=== PATIENT | female | born 1960 | race Caucasian/White ===

== ENCOUNTER → 2016-12-06 | Outpatient (CLI) | payer OTHER ==
--- NOTE | 2016-12-09 09:03 | MM ---
Reason for exam: screening (asymptomatic). Last mammogram was performed 2 years and 2 months ago. History: Patient is postmenopausal. Benign cyst aspiration of the right breast. Physical Findings: A clinical breast exam by your physician is recommended on an annual basis and results should be correlated with mammographic findings. MG 3D Screening Mammo W/Cad Bilateral CC and MLO view(s) were taken. Prior study comparison: September 30, 2014, bilateral MG screening mammo w CAD. September 01, 2009, bilateral screening mammogram free. There are scattered fibroglandular densities. There is no discrete abnormality. No significant changes when compared with prior studies. ASSESSMENT: Negative, BI-RAD 1 RECOMMENDATION: Routine screening mammogram of both breasts in 1 year.
== END | disposition home or self-care (01) ==
LOC: RADMAMWWP 09:51
PROVIDERS: ATTEND Family Medicine
DX: Z12.31 Encounter for screening mammogram for malignant neoplasm of breast (principal)
CPT/HCPCS: 77052; 77063; G0202

== ENCOUNTER 2018-12-24 23:14 | Emergency (ER) | payer OTHER, BC ==
[2018-12-24 23:29] VITALS: TEMP 98.2
[2018-12-24] MEDS ORDERED: DIPH,PERTUS(ACELL)TETVAC-LF 0.5 ML VIAL IM ONE (23:52)
--- NOTE | 2018-12-25 | ED ---
General Adult HPI - General Chief complaint: Fall Stated complaint: Fall, [facility] Time Seen by Provider: 12/24/18 23:47 Source: patient, RN notes reviewed Mode of arrival: ambulatory Limitations: no limitations - History of Present Illness Initial comments: Patient is a pleasant 58-year-old female presenting to the emergency department following a fall. Patient was at work when she slipped on ice outside of her car. Patient struck her left knee. Patient also did strike the left side of her face. Patient did not hit any other part of her head. Patient did not lose consciousness. No visual change. No confusion. No weakness. Patient is ambulatory. No neck or back pain. No chest pain or dyspnea. No abdominal pain. Unclear last tetanus immunization. - Related Data Home Medications Medication Instructions Recorded Confirmed No Known Home Medications 12/24/18 12/24/18 Allergies Allergy/AdvReac Type Severity Reaction Status Date / Time amoxicillin AdvReac Diarrhea Verified 12/24/18 23:30 sulfamethoxazole AdvReac Diarrhea Verified 12/24/18 23:30 [From Bactrim] trimethoprim [From Bactrim] AdvReac Diarrhea Verified 12/24/18 23:30 Review of Systems ROS Statement: Those systems with pertinent positive or pertinent negative responses have been documented in the HPI. ROS Other: All systems not noted in ROS Statement are negative. Constitutional: Denies: fever Eyes: Denies: eye pain ENT: Denies: ear pain Respiratory: Denies: cough Cardiovascular: Denies: chest pain Endocrine: Denies: fatigue Gastrointestinal: Denies: abdominal pain Genitourinary: Denies: dysuria Musculoskeletal: Denies: back pain Skin: Denies: rash Neurological: Denies: headache, weakness, confusion Past Medical History Past Medical History: No Reported History History of Any Multi-Drug Resistant Organisms: None Reported Past Surgical History: Hysterectomy Past Psychological History: No Psychological Hx Reported Smoking Status: Never smoker Past Alcohol Use History: Occasional Past Drug Use History: None Reported General Exam Limitations: no limitations General appearance: alert, in no apparent distress Head exam: Present: atraumatic Eye exam: Present: normal appearance, PERRL, EOMI. Absent: nystagmus ENT exam: Present: normal oropharynx, other (Abrasions and soft tissue tenderness left zygomatic region. No bony tenderness.) Neck exam: Present: normal inspection. Absent: tenderness Respiratory exam: Present: normal lung sounds bilaterally Cardiovascular Exam: Present: regular rate, normal rhythm GI/Abdominal exam: Present: soft. Absent: distended, tenderness Extremities exam: Present: tenderness (Left anterior knee with abrasion and moderate tenderness.). Absent: calf tenderness Back exam: Absent: tenderness, vertebral tenderness Neurological exam: Present: alert, CN II-XII intact. Absent: motor sensory deficit Expanded Cranial nerves: EOM's Intact: Normal Motor strength exam: RUE: 5, LUE: 5, RLE: 5, LLE: 5 Psychiatric exam: Present: normal affect, normal mood Skin exam: Present: normal color, abrasion (Left knee and left facial) Course Vital Signs 12/24/18 23:25 Temperature 98.2 F Pulse Rate 64 Respiratory 18 Rate Blood Pressure 134/80 O2 Sat by Pulse 98 Oximetry Medical Decision Making - Medical Decision Making Patient reevaluated and updated - Radiology Data Radiology results: image reviewed (The x-ray reveals no acute process) Disposition Clinical Impression: Fall, Knee contusion Disposition: HOME SELF-CARE Condition: Stable Instructions (If sedation given, give patient instructions): Knee Pain (ED) Additional Instructions: Yilg-obc-ebuxour Tylenol or Motrin as needed. Twice daily wash abrasions with soap and water, apply and a medic ointment, and bandage. Ice to affected area. Is patient prescribed a controlled substance at d/c from ED?: No Referrals: Cipriano Carnes DO [Primary Care Provider] - 1-2 days Time of Disposition: 00:17
--- NOTE | 2018-12-25 00:07 | XR ---
EXAMINATION TYPE: XR knee complete LT DATE OF EXAM: 12/25/2018 COMPARISON: NONE HISTORY: Pain TECHNIQUE: 3 views FINDINGS: I see no fracture nor dislocation. Knee joint spaces are fairly normal. There is spurring o n the superior patella. There is no sign of joint effusion. IMPRESSION: Spurring of the patella. No fracture seen.
[2018-12-25] MEDS ORDERED: IBUPROFEN 600 MG STARTER PACK 4 TAB BTL PO STA (00:14)
[2018-12-25 00:28] VITALS: BP 145/82; PULSE 60; RESP 16
== END 2018-12-25 00:28 | disposition home or self-care (01) ==
LOC: EC 23:14
DX: S80.02XA Contusion of left knee, initial encounter (principal); S00.81XA Abrasion of other part of head, initial encounter; Z23 Encounter for immunization; Z88.0 Allergy status to penicillin; Z88.1 Allergy status to other antibiotic agents; Z88.2 Allergy status to sulfonamides; W00.0XXA Fall on same level due to ice and snow, initial encounter
CPT/HCPCS: 90471; 90715; 99283

== ENCOUNTER → 2020-12-13 | Outpatient (CLI) | payer BC ==
--- NOTE | 2020-12-14 13:40 | MM ---
Reason for exam: screening (asymptomatic). Last mammogram was performed 4 years ago. History: Patient is postmenopausal. Benign cyst aspiration of the right breast. Physical Findings: A clinical breast exam by your physician is recommended on an annual basis and results should be correlated with mammographic findings. MG Screening Mammo w CAD Bilateral CC and MLO view(s) were taken. Prior study comparison: December 06, 2016, bilateral MG 3d screening mammo w/cad. September 30, 2014, bilateral MG screening mammo w CAD. The breast tissue is heterogeneously dense. This may lower the sensitivity of mammography. There is no discrete abnormality. ASSESSMENT: Negative, BI-RAD 1 RECOMMENDATION: Routine screening mammogram of both breasts in 1 year.
== END | disposition home or self-care (01) ==
LOC: RADMAMWWP 15:38
PROVIDERS: ATTEND Family Medicine
DX: Z12.31 Encounter for screening mammogram for malignant neoplasm of breast (principal)
CPT/HCPCS: 77067